=== PATIENT | female | born 1975 | race Caucasian/White ===

== ENCOUNTER 2017-07-07 13:24 | Outpatient (CLI) | payer BC ==
--- NOTE | 2017-07-07 15:22 | ULT ---
BILATERAL CAROTID DUPLEX ULTRASOUND: HISTORY: Facial droop, vision loss. TECHNIQUE: Parish scale ultrasound with color flow and spectral Doppler imaging of the extracranial carotid artery systems is performed bilaterally. FINDINGS: No significant plaque formation or intimal wall thickening is seen on either side. The peak systolic velocity in the right ICA measures 85 cm/s with an end-diastolic velocity of 3 cm/s and a systolic ratio of 0.37. The peak systolic velocity in the left ICA measures 102 cm/s with an end-diastolic velocity of 29 cm/ s and a systolic ratio of 0.54. Flow in both vertebral arteries remains antegrade. IMPRESSION: No evidence of hemodynamically significant stenosis. POS: OFF
== END 2017-07-07 13:25 | disposition home or self-care (01) ==
LOC: ULT 13:24
PROVIDERS: ATTEND Physician Assistant
DX: H53.123 Transient visual loss, bilateral (principal); R29.810 Facial weakness; I10 Essential (primary) hypertension
CPT/HCPCS: 93880

== ENCOUNTER 2018-10-27 23:25 | Emergency (ER) | payer SELFPAY ==
--- NOTE | 2018-10-27 23:51 | RAD ---
PORTABLE CHEST: Date: 10/27/18 HISTORY: Chest pain. COMPARISON: 06/09/15. FINDINGS: No evidence of infiltrate. Density in the right infrahilar region and medial right lung base appears to be vascular and is stable. IMPRESSION: No acute process. POS: [facility]
[2018-10-27 23:57] LABS: #Eosinphils 0.1 thou/uL (0.0-0.7); #Lymphocytes 1.9 thou/uL (1.20-3.40); #Monocytes 0.5 thou/uL (0.11-0.59); #Neutrophils 10.7 thou/uL (1.40-6.50); %Basophils 0.2 % (0.0-1.0); %Eosinophils 0.9 % (0.0-10.0); %Lymphocytes 14.1 % (21.0-51.0); %Monocytes 3.6 % (0.0-10.0); %Neutrophils 81.1 % (42.0-75.0); Mean Corpuscular HGB CONC 34.8 g/dL (32.0-36.0); Mean Corpuscular Volume 88.9 fL (78.0-98.0); Mean Platelet Volume 8.4 fL (7.4-10.4); Platelet Count 245 thou/uL (130-400); RBC Distribution Width 12.1 % (11.5-14.5); Red Blood Cell (RBC) Count 4.83 mill/uL (4.20-5.40); White Blood Cell (WBC) Count 13.2 thou/uL (4.8-10.8)
[2018-10-28 00:17] LABS: ALT (SGPT) 14 U/L (8-55); AST (SGOT) 12 U/L (5-34); Albumin 4.5 g/dL (3.5-5.0); Alkaline Phosphatase 69 U/L (40-150); Anion Gap 16 mmol/L (10-20); BUN (Urea Nitrogen) 8 mg/dL (7.0-18.7); Bilirubin, Total 0.4 mg/dL (0.2-1.2); Calc. Creatinine Clearance 0 mL/min (70-130); Calcium 9.5 mg/dL (7.8-10.44); Carbon Dioxide 18 mmol/L (22-29); Chloride 106 mmol/L (98-107); Estimated GFR-MDRD 87; Globulin 3.4 g/dL (2.4-3.5); Glucose 95 mg/dL (70-105); Potassium 3.3 mmol/L (3.5-5.1); Protein, Total 7.9 g/dL (6.0-8.3); Sodium 137 mmol/L (136-145)
[2018-10-28] MEDS ORDERED: Lorazepam 2 MG/ML VIAL ONE (00:24)
== END 2018-10-28 03:10 | disposition home or self-care (01) ==
LOC: ERS 23:25
DX: J20.9 Acute bronchitis, unspecified (principal); I10 Essential (primary) hypertension; F17.210 Nicotine dependence, cigarettes, uncomplicated
CPT/HCPCS: 71045; 80053; 84484; 85025; 93005; 96374; J2060

== ENCOUNTER 2018-11-30 14:39 | Emergency (ER) | payer SELFPAY | END 2018-11-30 15:35 | disposition home or self-care (01) | LOC: ERS 14:39 | DX: S40.862A Insect bite (nonvenomous) of left upper arm, initial encounter (principal); I10 Essential (primary) hypertension; F17.210 Nicotine dependence, cigarettes, uncomplicated; W57.XXXA Bitten or stung by nonvenomous insect and other nonvenomous arthropods, initial encounter | CPT/HCPCS: 99282 ==

== ENCOUNTER 2019-03-13 04:40 | Observation (INO) | payer SELFPAY ==
[2019-03-13 05:05] LABS: #Basophils 0.1 thou/uL (0.0-0.2); #Eosinphils 0.2 thou/uL (0.0-0.7); #Lymphocytes 2.4 thou/uL (1.20-3.40); #Monocytes 0.7 thou/uL (0.11-0.59); #Neutrophils 6.2 thou/uL (1.40-6.50); %Basophils 0.8 % (0.0-1.0); %Lymphocytes 25.1 % (21.0-51.0); %Monocytes 7.1 % (0.0-10.0); %Neutrophils 65.1 % (42.0-75.0); Hemoglobin 15.1 g/dL (12.0-16.0); Mean Corpuscular HGB CONC 34.4 g/dL (32.0-36.0); Mean Corpuscular Hemoglobin 30.4 pg (27.0-31.0); Mean Corpuscular Volume 88.5 fL (78.0-98.0); Mean Platelet Volume 8.3 fL (7.4-10.4); Platelet Count 236 thou/uL (130-400); RBC Distribution Width 12.1 % (11.5-14.5); Red Blood Cell (RBC) Count 4.97 mill/uL (4.20-5.40); White Blood Cell (WBC) Count 9.6 thou/uL (4.8-10.8)
[2019-03-13 05:30] LABS: ALT (SGPT) 13 U/L (8-55); AST (SGOT) 13 U/L (5-34); Albumin 4.6 g/dL (3.5-5.0); Alkaline Phosphatase 63 U/L (40-110); Anion Gap 13 mmol/L (10-20); BUN (Urea Nitrogen) 6 mg/dL (7.0-18.7); Bilirubin, Total 0.4 mg/dL (0.2-1.2); CK (CPK) 52 U/L (29-168); Calc. Creatinine Clearance 0 mL/min (70-130); Calcium 9.5 mg/dL (7.8-10.44); Carbon Dioxide 26 mmol/L (22-29); Chloride 105 mmol/L (98-107); Estimated GFR-MDRD 83; Globulin 3.2 g/dL (2.4-3.5); Glucose 106 mg/dL (70-105); Potassium 4.4 mmol/L (3.5-5.1); Protein, Total 7.8 g/dL (6.0-8.3); Sodium 140 mmol/L (136-145)
[2019-03-13] MEDS ORDERED: Nitroglycerin 0.4 MG TAB 1 EACH ONE (06:13)
[2019-03-13] MEDS ORDERED: Aspirin Chewable 81 MG TAB ONE (06:13)
[2019-03-13] MEDS ORDERED: Aspirin Chewable 81 MG TAB PO SCH (06:15)
[2019-03-13] MEDS ORDERED: Nitroglycerin 0.4 MG TAB (25 Tab Bottle) SL SCH (06:30)
--- NOTE | 2019-03-13 08:05 | RAD ---
Chest one view HISTORY: Chest pain. COMPARISON: 10/19/2017. FINDINGS: The cardiac silhouette is magnified by projection. Pulmonary vasculature is unremarkable. M ediastinum is midline with aortic calcification. Mild bibasilar atelectasis is similar in appearance to previous exam. No lobar consolidation or evidence of pneumothorax. IMPRESSION: Mild bibasilar atelectasis and other chronic-type findings are stable. No active cardiopu lmonary abnormalities are demonstrated
[2019-03-13 08:25] LABS: Troponin I Less than 0.010 ng/mL (< 0.028)
[2019-03-13 09:39] VITALS: BMI 30.6
[2019-03-13] MEDS ORDERED: Acetaminophen 325 MG TAB PO PRN (11:17)
[2019-03-13] MEDS ORDERED: Guaifenesin DM 100-10/5 ML UDCUP PO PRN (11:17)
[2019-03-13 11:38] LABS: Troponin I Less than 0.010 ng/mL (< 0.028)
[2019-03-13 15:18] VITALS: BP 130/81; TEMP 97.8
--- NOTE | 2019-03-13 16:54 | HP ---
REASON FOR ADMISSION: Chest pain. HISTORY OF PRESENTING ILLNESS: The patient gives history of watching TV around 2 in the morning and developed left-sided chest pain. She felt like someone was punching her. Her blood pressure was also elevated at 213/107. She took a tablet of aspirin and 30 minutes later, her blood pressure got elevated even further. This concerned her, hence came to emergency room. No complaints of fever or expectoration. Has dry cough due to her smoking habit. No complaints of palpitations, PND, or orthopnea. No radiation of chest pain. No prior cardiac workup. PAST MEDICAL AND SURGICAL HISTORY: History of hypertension for last 1 year, not on any medications. Appendectomy, tonsillectomy, x3, and tubal ligation. CURRENT MEDICATIONS: None. ALLERGIES: TO OXYCODONE AND OXYCONTIN. PERSONAL HISTORY: Smokes 2 packs per day. Does not abuse alcohol or drugs. Lives with her . FAMILY HISTORY: Mother is 65 years old and has history of CABG. She does not know much about her father. CODE STATUS: Full. Power of assistant city attorney is her . REVIEW OF SYSTEMS: CONSTITUTIONAL: Negative for weight loss or gain, ability to conduct usual activities. SKIN: Negative for rash, itching. EYES: Negative for double vision, pain. ENT/MOUTH: Negative for nose bleeding, neck stiffness, pain, tenderness. CARDIOVASCULAR: Negative for palpitations, dyspnea on exertion, orthopnea. RESPIRATORY: Negative for shortness of breath, wheezing, cough, hemoptysis, fever or night sweats. GASTROINTESTINAL: Negative for poor appetite, abdominal pain, heartburn, nausea , vomiting, constipation, or diarrhea. GENITOURINARY: Negative for urgency, frequency, dysuria, nocturia. MUSCULOSKELETAL: Negative for pain, swelling. NEUROLOGIC/PSYCHIATRIC: Negative for anxiety, depression. ALLERGY/IMMUNOLOGIC: Negative for skin rash, bleeding tendency. PHYSICAL EXAMINATION: GENERAL: The patient is a 43-year-old female, who is currently not in any acute distress. VITAL SIGNS: Blood pressure on arrival was 186/91, pulse 90 per minute, respiratory rate 18 per minute, temperature 97.5 degrees Fahrenheit, and saturating 97% on room air. NECK: Supple. No elevated JVD. HEENT: Eyes; extraocular muscles intact. Pupils are reacting to light. Oral cavity, mucous membranes are moist. No exudates or congestion. CARDIOVASCULAR SYSTEM: S1 and S2 heard, regular rhythm. RESPIRATORY SYSTEM: Air entry 2+ bilateral. Scattered rhonchi plus no rales or wheezes. ABDOMEN: Soft. Bowel sounds heard. No tenderness, rigidity, or guarding. EXTREMITIES: No peripheral edema or calf tenderness. VASCULAR SYSTEM: Peripheral pulses 2+ bilateral. No ischemic ulcerations or gangrene. CENTRAL NERVOUS SYSTEM: No gross focal deficits noted. The patient is alert, awake, and oriented well. PSYCHIATRIC SYSTEM: The patient's mood is euthymic. No hallucinations or delusions. LABORATORY DATA: White count of 9, H and H 15 and 44, platelet count 236, and MCV is 88 with 65% neutrophils. Electrolytes are stable. BUN 6, creatinine 0.7, serum glucose 106. Troponin x3 negative. Liver enzymes within normal limits. Albumin is 4.6. Chest x-ray done shows no acute infiltrate is seen. The patient has had exercise stress test done, which is negative per Dr. Guevara. CLINICAL IMPRESSION AND PLAN: The patient initially came to ER with complaints of chest pain and hypertensive urgency. She was off medications for hypertension for last 1 year or so. She is currently stable on a small dose of Lopressor 25 mg twice daily, lisinopril 10 mg daily. Her exercise stress test was negative. She has been counseled with regard to medication compliance and dietary compliance. She will be shortly discharged home. The patient needs to see a primary care physician in 1 week. She does not have a primary care physician at present. Please note, this is a same day admission and discharge under observation status. Job ID: [id number] [facility]
[2019-03-13] MEDS ORDERED: Famotidine 20 MG TAB PO SCH (21:00)
[2019-03-13] MEDS ORDERED: Metoprolol Tartrate 25 MG TAB PO SCH (21:00)
[2019-03-14] MEDS ORDERED: Aspirin 325 mg Enteric Coated Tablet PO SCH (09:00)
[2019-03-14] MEDS ORDERED: Lisinopril/Hydrochlorothiazide 20 mg/12.5 mg Tablet PO SCH (09:00)
--- NOTE | 2019-03-20 15:05 | EKG ---
Test Reason : CP Blood Pressure : / mmHG Vent. Rate : 091 BPM Atrial Rate : 091 BPM P-R Int : 172 ms QRS Dur : 092 ms QT Int : 372 ms P-R-T Axes : 028 018 034 degrees QTc Int : 457 ms Normal sinus rhythm Normal ECG Confirmed by ANAHI CHISHOLM DO ([id number]), dictionary editor LEON LEE ([id number] on 03/20/2019 3:05:18 PM Referred By: Confirmed By:ANAHI CHISHOLM DO
== END 2019-03-13 16:09 | disposition home or self-care (01) ==
LOC: ERS 04:40 → 2SW 06:14
PROVIDERS: ADMIT Internal Medicine; ATTEND Internal Medicine
DX: R07.9 Chest pain, unspecified (principal); I16.0 Hypertensive urgency; I10 Essential (primary) hypertension; F17.210 Nicotine dependence, cigarettes, uncomplicated; Z88.5 Allergy status to narcotic agent
CPT/HCPCS: 36415; 71045; 80053; 82550; 84484; 85025; 93005; 93017; G0378

== ENCOUNTER 2019-08-29 18:33 | Emergency (ER) | payer SELFPAY ==
--- NOTE | 2019-08-29 19:20 | CT ---
CT Brain WO Con History: Dizziness and nausea Comparison: CT brain 2018 Findings: No acute hemorrhage or infarct. No midline shift or mass effect. Punctate calcification of the roof of the third ventricle is similar likely of no clinical significance. Calvarium is intact. Paranasal sinuses and mastoids are clear. Impression: No acute intracranial abnormality.
[2019-08-29 19:30] LABS: #Basophils 0.1 thou/uL (0.0-0.2); #Eosinphils 0.1 thou/uL (0.0-0.7); #Lymphocytes 1.8 thou/uL (1.20-3.40); #Monocytes 0.4 thou/uL (0.11-0.59); #Neutrophils 6.7 thou/uL (1.40-6.50); %Basophils 0.9 % (0.0-1.0); %Eosinophils 0.9 % (0.0-10.0); %Lymphocytes 20.2 % (21.0-51.0); %Monocytes 4.4 % (0.0-10.0); %Neutrophils 73.7 % (42.0-75.0); Hemoglobin 15.1 g/dL (12.0-16.0); Mean Corpuscular HGB CONC 35.1 g/dL (32.0-36.0); Mean Corpuscular Hemoglobin 31.4 pg (27.0-31.0); Mean Corpuscular Volume 89.7 fL (78.0-98.0); Mean Platelet Volume 8.9 fL (7.4-10.4); Platelet Count 213 thou/uL (130-400); White Blood Cell (WBC) Count 9.1 thou/uL (4.8-10.8)
[2019-08-29 19:52] LABS: ALT (SGPT) 12 U/L (8-55); AST (SGOT) 10 U/L (5-34); Albumin 4.5 g/dL (3.5-5.0); Alkaline Phosphatase 63 U/L (40-110); Anion Gap 13 mmol/L (10-20); BUN (Urea Nitrogen) 9 mg/dL (7.0-18.7); Bilirubin, Total 0.3 mg/dL (0.2-1.2); Calc. Creatinine Clearance 0 mL/min (70-130); Calcium 9.4 mg/dL (7.8-10.44); Carbon Dioxide 23 mmol/L (22-29); Chloride 108 mmol/L (98-107); Estimated GFR-MDRD 89; Globulin 2.9 g/dL (2.4-3.5); Glucose 95 mg/dL (70-105); Protein, Total 7.4 g/dL (6.0-8.3); Sodium 140 mmol/L (136-145)
== END 2019-08-29 18:45 | disposition home or self-care (01) ==
LOC: ERS 18:33
DX: I10 Essential (primary) hypertension (principal); G43.909 Migraine, unspecified, not intractable, without status migrainosus; F17.210 Nicotine dependence, cigarettes, uncomplicated; Z79.899 Other long term (current) drug therapy
CPT/HCPCS: 36415; 70450; 80053; 84443; 84484; 85025

== ENCOUNTER 2020-06-03 03:18 | Emergency (ER) | payer SELFPAY ==
[2020-06-03 03:59] LABS: #Eosinphils 0.1 thou/uL (0.0-0.7); #Lymphocytes 2.5 thou/uL (1.20-3.40); #Monocytes 0.5 thou/uL (0.11-0.59); %Basophils 0.2 % (0.0-1.0); %Eosinophils 1.3 % (0.0-10.0); %Lymphocytes 22.4 % (21.0-51.0); %Monocytes 4.7 % (0.0-10.0); %Neutrophils 71.5 % (42.0-75.0); Hemoglobin 15.2 g/dL (12.0-16.0); Mean Corpuscular HGB CONC 34.8 g/dL (32.0-36.0); Mean Corpuscular Volume 91.9 fL (78.0-98.0); Mean Platelet Volume 9.3 fL (7.4-10.4); Platelet Count 201 thou/uL (130-400); RBC Distribution Width 12.2 % (11.5-14.5); Red Blood Cell (RBC) Count 4.74 mill/uL (4.20-5.40); White Blood Cell (WBC) Count 11.2 thou/uL (4.8-10.8)
[2020-06-03 04:33] LABS: ALT (SGPT) 13 U/L (8-55); AST (SGOT) 13 U/L (5-34); Albumin 4.3 g/dL (3.5-5.0); Alkaline Phosphatase 64 U/L (40-110); Anion Gap 13 mmol/L (10-20); BUN (Urea Nitrogen) 8 mg/dL (7.0-18.7); Bilirubin, Total 0.3 mg/dL (0.2-1.2); Calc. Creatinine Clearance 0 mL/min (70-130); Calcium 8.6 mg/dL (7.8-10.44); Carbon Dioxide 22 mmol/L (22-29); Chloride 107 mmol/L (98-107); Globulin 3.1 g/dL (2.4-3.5); Glucose 97 mg/dL (70-105); Potassium 3.5 mmol/L (3.5-5.1); Protein, Total 7.4 g/dL (6.0-8.3); Sodium 138 mmol/L (136-145)
--- NOTE | 2020-06-03 08:43 | RAD ---
EXAM: Chest one view: HISTORY: Chest heaviness, nausea, weakness COMPARISON: 03/13/2019 FINDINGS: Heart size: Within normal limits. Lungs: Clear of acute process. No evidence for confluent lobar pneumonia, significant pleural effusion, acute edema, or pneumothorax , or other significant acute process. IMPRESSION: No significant acute intrathoracic disease. Stable exam.
--- NOTE | 2020-06-03 09:50 | CT ---
PRELIMINARY REPORT/DIRECT RADIOLOGY/EMERGENCY AFTER HOURS PROCEDURE: EXAM: CTA Chest with Intravenous Contrast CLINICAL HISTORY: COVID NEG 1 MONTH AGO. CHEST HEAVINESS WORSE WITH INSPIRATION, NAUSEA, WEAKNESS, "F EELS LIKE I AM GOING TO PASS OUT". ONSET 1900. TECHNIQUE: Axial CTA images of the chest with intravenous contrast. Three-dimensional MIP/volume rend ered reformations were performed. CONTRAST: With; ISOVUE 370,100mL COMPARISON: None provided. FINDINGS: PULMONARY ARTERIES There is no intraluminal filling defect suspicious for PE. AORTA No thoracic aortic aneurysm or dissection. Aberrant right subclavian artery noted. LUNGS Some diffuse groundglass density noted throughout the lungs as well as some more prominent inte rstitial changes at the dependent lung bases. Small parenchymal and subpleural cysts are noted bilaterally. PLEURAL SPACES No pleural effusion. No pneumothorax. HEART AND MEDIASTINUM No cardiomegaly. No significant pericardial effusion. LYMPH NODES No lymphadenopathy. BONES No focal osseous abnormality or acute fracture. CHEST WALL AND UPPER ABDOMEN Images through the upper abdomen are unremarkable. The chest wall is unr emarkable. IMPRESSION: No evidence of pulmonary emboli. Correlation for a mild atypical pneumonia, pneumonitis, or even some pulmonary edema. ELECTRONICALLY SIGNED BY: Chemo Eng MD Jun 03, 2020 4:59:02 AM [employer]ATION OFFICER FINAL REPORT CT ANGIOGRAM OF THE CHEST INCLUDING 3D RENDERING: EMERGENCY AFTER HOURS EXAM TIME: 4:39 AM. DATE: 06/03/2020. Subtle bilateral mostly lower lung zone groundglass opacity changes, nonspecific. No convincing evidence for acute pulmonary embolism. This report agrees with the preliminary report. Transcribed Date/Time: 06/03/2020 9:50 AM
[2020-06-03] MEDS ORDERED: Iopamidol-370 76% 500 ML 1 ML ONE (11:38)
== END 2020-06-03 05:09 | disposition home or self-care (01) ==
LOC: ERS 03:18
DX: R06.00 Dyspnea, unspecified (principal); I10 Essential (primary) hypertension; F17.210 Nicotine dependence, cigarettes, uncomplicated
CPT/HCPCS: 71045; 71275; 80053; 83880; 84484; 85025; 85379; 93005; Q9967

== ENCOUNTER 2020-06-12 23:07 | Emergency (ER) | payer SELFPAY ==
[2020-06-13 00:32] LABS: #Eosinphils 0.1 thou/uL (0.0-0.7); #Monocytes 0.5 thou/uL (0.11-0.59); #Neutrophils 6.2 thou/uL (1.40-6.50); %Basophils 0.5 % (0.0-1.0); %Lymphocytes 22.8 % (21.0-51.0); %Monocytes 5.9 % (0.0-10.0); %Neutrophils 69.7 % (42.0-75.0); Hemoglobin 15.2 g/dL (12.0-16.0); Mean Corpuscular HGB CONC 33.7 g/dL (32.0-36.0); Mean Corpuscular Hemoglobin 30.8 pg (27.0-31.0); Mean Corpuscular Volume 91.4 fL (78.0-98.0); Mean Platelet Volume 9.2 fL (7.4-10.4); Platelet Count 187 thou/uL (130-400); RBC Distribution Width 12.2 % (11.5-14.5); Red Blood Cell (RBC) Count 4.93 mill/uL (4.20-5.40)
[2020-06-13 00:35] LABS: ALT (SGPT) 11 U/L (8-55); AST (SGOT) 11 U/L (5-34); Albumin 4.4 g/dL (3.5-5.0); Alkaline Phosphatase 65 U/L (40-110); Anion Gap 11 mmol/L (10-20); BUN (Urea Nitrogen) 9 mg/dL (7.0-18.7); Bilirubin, Total 0.3 mg/dL (0.2-1.2); Calc. Creatinine Clearance 0 mL/min (70-130); Carbon Dioxide 28 mmol/L (22-29); Chloride 107 mmol/L (98-107); Globulin 2.7 g/dL (2.4-3.5); Glucose 103 mg/dL (70-105); Protein, Total 7.1 g/dL (6.0-8.3); Sodium 142 mmol/L (136-145)
--- NOTE | 2020-06-13 07:42 | RAD ---
RADIOGRAPH CHEST 1 VIEW: DATE: 06/13/2020 HISTORY: 44-year-old female with chest pain and hypertension FINDINGS: There are no airspace densities, pulmonary edema, pneumothorax, or cardiomegaly. The lateral costophr enic angles are sharp. IMPRESSION: No acute cardiopulmonary findings.
--- NOTE | 2020-06-17 10:33 | EKG ---
Test Reason : Blood Pressure : / mmHG Vent. Rate : 083 BPM Atrial Rate : 083 BPM P-R Int : 158 ms QRS Dur : 086 ms QT Int : 378 ms P-R-T Axes : 034 023 048 degrees QTc Int : 444 ms Normal sinus rhythm Possible Anterior infarct , age undetermined Abnormal ECG Confirmed by PARIS RAMSAY M.D. ([id number]), book or script editor LEON LEE ([id number] on 06/17/2020 10:33:06 AM Referred By: Confirmed By:PARIS RAMSAY M.D.
== END 2020-06-13 01:17 | disposition home or self-care (01) ==
LOC: ERS 23:07
DX: I10 Essential (primary) hypertension (principal); F17.210 Nicotine dependence, cigarettes, uncomplicated
CPT/HCPCS: 36415; 71045; 80053; 84484; 85025; 93005

== ENCOUNTER 2021-12-25 16:23 | Emergency (ER) | payer SELFPAY | END 2021-12-25 18:39 | disposition home or self-care (01) | LOC: ERS 16:23 | DX: U07.1 COVID-19 (principal); I10 Essential (primary) hypertension; F17.210 Nicotine dependence, cigarettes, uncomplicated | CPT/HCPCS: 99283; U0003; U0005 ==

== ENCOUNTER 2022-04-23 12:04 | Outpatient (CLI) | payer MEDICAID | END 2022-04-23 12:05 | disposition home or self-care (01) | LOC: BICMAMMO 12:04 | PROVIDERS: ATTEND Nurse Practitioner Family | DX: Z12.31 Encounter for screening mammogram for malignant neoplasm of breast (principal) | CPT/HCPCS: 77067 ==

== ENCOUNTER 2022-05-14 07:48 | Outpatient (CLI) | payer MEDICAID | END 2022-05-14 07:49 | disposition home or self-care (01) | LOC: BICULT 07:48 | PROVIDERS: ATTEND Nurse Practitioner Family | DX: Z12.31 Encounter for screening mammogram for malignant neoplasm of breast (principal); R92.8 Other abnormal and inconclusive findings on diagnostic imaging of breast; Z86.018 Personal history of other benign neoplasm | CPT/HCPCS: G0279 ==

== ENCOUNTER 2023-02-13 09:06 | Outpatient (CLI) | payer MEDICAID | END 2023-02-13 09:07 | disposition home or self-care (01) | LOC: BICMAMMO 09:06 | PROVIDERS: ATTEND Nurse Practitioner Family | DX: N63.13 Unspecified lump in the right breast, lower outer quadrant (principal); R92.8 Other abnormal and inconclusive findings on diagnostic imaging of breast | CPT/HCPCS: 77066; G0279 ==